=== PATIENT | male | born 1945 | race Caucasian/White ===

== ENCOUNTER → 2018-05-27 | Outpatient (CLI) | payer MEDICARE, OTHER ==
[~2018-05-27] MED LIST: REGADENOSON 0.4 MG/5 ML SYRINGE ONE
== END | disposition home or self-care (01) ==
LOC: CFH 06:51
PROVIDERS: ATTEND Internal Medicine Cardiovascular Disease
DX: I73.9 Peripheral vascular disease, unspecified (principal); I65.23 Occlusion and stenosis of bilateral carotid arteries; R01.1 Cardiac murmur, unspecified; I10 Essential (primary) hypertension; R00.1 Bradycardia, unspecified
CPT/HCPCS: 78452; 93017; 93306; A9502; J2785

== ENCOUNTER → 2018-06-05 | Outpatient (CLI) | payer MEDICARE, OTHER | END | disposition home or self-care (01) | LOC: CVU 08:33 | PROVIDERS: ATTEND Internal Medicine Cardiovascular Disease | DX: I65.23 Occlusion and stenosis of bilateral carotid arteries (principal); I73.9 Peripheral vascular disease, unspecified; I10 Essential (primary) hypertension | CPT/HCPCS: 93880; 93922; 93925 ==

== ENCOUNTER 2020-09-17 10:33 | Day surgery (SDC) | payer MEDICARE, OTHER ==
[~2020-09-17] VITALS: Ht 190.5 cm; Wt 80.0 kg
[2020-09-17] MEDS ORDERED: APIX5TAB PO (11:14)
[2020-09-17] MEDS ORDERED: AMLO-150 PO (11:15)
[2020-09-17] MEDS ORDERED: MIRT45TA57 PO (11:15)
[2020-09-17] MEDS ORDERED: AMLO-211 PO (11:15)
[2020-09-17] MEDS ORDERED: OMEP-110 PO (11:16)
[2020-09-17] MEDS ORDERED: TAMS-11 PO (11:16)
[2020-09-17] MEDS ORDERED: CALC0.25 PO (11:17)
[2020-09-17] MEDS ORDERED: ALPR0.5T93 PO (11:17)
[2020-09-17] MEDS ORDERED: METO50TA82 PO (11:18)
[2020-09-17] MEDS ORDERED: FURO20TA3 PO (11:18)
[2020-09-17] MEDS ORDERED: ASPI-963 PO (11:19)
[2020-09-17] MEDS ORDERED: EVOL140P3 SUBD (11:20)
[2020-09-17 11:22] VITALS: BP 127/73
[2020-09-17 11:35] LABS: ANION GAP 7 mmol/L (5-15); CALCIUM 8.2 mg/dL (8.5-10.1); CHLORIDE 113 mmol/L (98-107); CREATININE 1.73 mg/dL (0.7-1.3)
== END 2020-09-17 13:14 | disposition home or self-care (01) ==
LOC: CACL 10:33
PROVIDERS: ATTEND Internal Medicine Cardiovascular Disease
DX: I48.91 Unspecified atrial fibrillation (principal); I08.1 Rheumatic disorders of both mitral and tricuspid valves; I13.0 Hypertensive heart and chronic kidney disease with heart failure and stage 1 through stage 4 chronic kidney disease, or unspecified chronic kidney disease; I50.30 Unspecified diastolic (congestive) heart failure; N18.30 Chronic kidney disease, stage 3 unspecified; E78.5 Hyperlipidemia, unspecified; E03.9 Hypothyroidism, unspecified; E66.3 Overweight; Z68.22 Body mass index [BMI] 22.0-22.9, adult; Z79.82 Long term (current) use of aspirin; Z79.01 Long term (current) use of anticoagulants; Z79.890 Hormone replacement therapy; Z79.899 Other long term (current) drug therapy; Z87.891 Personal history of nicotine dependence; Z88.5 Allergy status to narcotic agent; Z98.890 Other specified postprocedural states
CPT/HCPCS: 36415; 80048; 92960; 93005